=== PATIENT | male | born 1945 ===

== ENCOUNTER → 2016-07-02 | Outpatient (CLI) | payer MEDICARE ==
[~2016-07-02] MED LIST: CONTRAST GIVEN MC PRN; IOHEXOL 240 MG/ML 50ML VIAL. PO ONE; IOHEXOL 300 MG/ML 75 ML VIAL IV ONE
[2016-07-02 11:21] LABS: GFR 73.2
--- NOTE | 2016-07-02 13:21 | RAD ---
CT of the abdomen and pelvis with contrast, 07/02/2016: History: Leg swelling Multidetector CT imaging was performed following oral and IV administration of contrast. A few scattered coronary calcifications are noted. The liver is unremarkable. No radiopaque gallstones are seen. The pancreas is unremarkable. The spleen is of normal size. No renal or adrenal abnormality is detected. There is moderate aortoiliac calcific plaquing without evidence of aneurysm. No abdominal or iliac adenopathy is seen. The unopacified inferior vena cava and iliac veins are unremarkable. No obstructing mass is seen in these regions. The prostate gland is mildly enlarged measuring 5.3 cm in width. Scattered diverticula are present in the sigmoid region. No paracolonic inflammatory process is seen. The bowel loops are not dilated. A portion of the appendix is visualized and it shows no abnormality. No free fluid is evident in the abdomen or pelvis. Moderate degenerative changes are present in the lower lumbar spine. A mild spondylolisthesis has developed, secondary to facet joint arthropathy, at L4-5. There is mild underlying spinal stenosis. Utilizing this numbering system there are tiny accessory ribs at L1. IMPRESSION: 1. No acute abdominal or pelvic abnormality is detected. 2. 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 3. Mild prostatic enlargement. 4. Sigmoid diverticulosis. 5. Mild spondylolisthesis at L4-5. PQRS Compliance Statement: One or more of the following individualized dose reduction techniques were utilized for this examination: 1. Automated exposure control 2. Adjustment of the mA and/or kV according to patient size 3. Use of iterative reconstruction technique
== END | disposition home or self-care (01) ==
LOC: CT 15:34
PROVIDERS: ATTEND Specialist
DX: M48.06 Spinal stenosis, lumbar region (principal); I10 Essential (primary) hypertension; N40.0 Benign prostatic hyperplasia without lower urinary tract symptoms; K57.30 Diverticulosis of large intestine without perforation or abscess without bleeding; M47.896 Other spondylosis, lumbar region; M43.16 Spondylolisthesis, lumbar region; M12.88 Other specific arthropathies, not elsewhere classified, other specified site; I70.0 Atherosclerosis of aorta; I25.10 Atherosclerotic heart disease of native coronary artery without angina pectoris
CPT/HCPCS: 36415; 74177; 82565; Q9966; Q9967